=== PATIENT | male | born 1945 | race Caucasian/White ===

== ENCOUNTER 2019-07-29 17:39 | Inpatient (IN) | payer MEDICARE ==
[~2019-07-29] VITALS: Ht 175.3 cm; Wt 83.2 kg
[~2019-07-29 17:39] MED LIST: APIX5TAB PO; ATOR20TA PO; CHOL2000 PO; CLOP75TA52 PO; DILT60CA PO; FERR-46 PO; FURO-93 PO; FURO40TA6 PO; GABA100C PO; INSU100I13 SQ-INSULIN; INSU100V8 SQ; INSU200I SQ; LEVO25TA4 PO; METO50TA82 PO; OMEP-110 PO; POTA20TA6 PO; SERT50TA28 PO; SPIR25TA PO; SULF-169 PO
--- NOTE | 2019-07-29 17:39 | NUR ---
TATIANA FROM [place] C/O INCR CONFUSION, ORIENTED TO SELF ONLY/ABLE TO FOLLOW COMMANDS (BASELINE AOX3), INCR LETHARGY & INCONT B/B SINCE RECENT DC FROM [facility] (ADMIT FOR SEPSIS/UTI), SYMPTOMS WORSENING YESTERDAY; HX A-FIB/ELIQUIS, DM2, CHF; PIV, BG 398, NO OTHER INTERVENTIONS [employer] PER EMS; PT CHANGED INTO GOWN, EKG DONE; CARDIAC, NIBP & SPO2 MONITORS IN PLACE, DAUGHTER AT . Addendum: 07/29/19 at 1904 by KAMILA BLD CX BAND ON PT'S WRIST
[2019-07-29] MEDS ORDERED: POTA20TA89 PO (18:14)
[2019-07-29] MEDS ORDERED: INSU100V8 SQ (18:14)
--- NOTE | 2019-07-29 18:16 | NUR ---
BREAK RN: ERP AT BS
[2019-07-29] MEDS ORDERED: SODIUM CHLORIDE 0.9% 1,000ML IVBOLUS ONE ×2 (18:30→19:30)
[2019-07-29] MEDS ORDERED: SODIUM CHLORIDE FLUSH 10ML SYR IVF ONE (18:30)
[2019-07-29 18:42] LABS: MEAN CORPUSCULAR HEMOGLOBIN 28.4 pg (27.5-34.5); MEAN CORPUSCULAR HGB CONC 32.9 g/dL (33.2-36.2); MEAN CORPUSCULAR VOLUME 86.3 fL (81-97); MEAN PLATELET VOLUME 10.9 fL (7.4-10.4); PLATELET COUNT 111 x10^3/uL (130-400); RED BLOOD COUNT 6.86 x10^6/uL (4.38-5.82); RED CELL DISTRIBUTION WIDTH 16.2 % (9.4-14.8)
--- NOTE | 2019-07-29 18:47 | NUR ---
PT REPORT FROM CASSIE ARTEAGA. PT CARE TO BE ASSUMED. DR BOSE BS FOR FLU SWAB SPECIMEN.
[2019-07-29 18:56] LABS: ALANINE AMINOTRANSFERASE 63 U/L (12-78); ALBUMIN 3.5 g/dL (3.4-5.0); ANION GAP 11 mmol/L (5-15); CALCIUM 9.6 mg/dL (8.5-10.1); CHLORIDE 96 mmol/L (98-107); CREATININE 2.06 mg/dL (0.7-1.3)
[2019-07-29 18:58] LABS: ALKALINE PHOSPHATASE 157 U/L (45-117); BILIRUBIN,TOTAL 1.2 mg/dL (0.2-1.0); TOTAL PROTEIN 7.6 g/dL (6.4-8.2)
--- NOTE | 2019-07-29 19:00 | NUR ---
PT RESTING QUIETLY ON GURNEY, IV INFUSING, 24G RAC - SITE PATENT, CARDIAC & VS MONITORING CONTINUING (TACHY 136), DAUGHTER IN ROOM, SIDE RAILS UP X2, CALL LIGHT W/IN REACH.
--- NOTE | 2019-07-29 19:05 | NUR ---
GIANLUCA LYNN - DAUGHTER ( 05/20/1971) CELL [phone]
[2019-07-29 19:08] LABS: CULTURE INDICATED? YES; MICROSCOPIC INDICATED
--- NOTE | 2019-07-29 19:09 | NUR ---
SIGNED DNR/POLST FORM IN ROOM: DNR. COPY MADE FOR CHART.
[2019-07-29 19:10] LABS: MD YES
[2019-07-29 19:14] LABS: BANDS%(MANUAL) 5 % (0-7); LYMPHS% (MANUAL) 4 % (22-44); MONOS#(MANUAL) 1.39 x10^3/uL (0.3-2.7); MONOS% (MANUAL) 7 % (2-9); SEG#(MANUAL) 16.72 x10^3/uL (1.8-6.8); SEGS% (MANUAL) 84 % (42-75)
[2019-07-29 19:15] LABS: <PLATELET ESTIMATE> DECREASED; <RBC MORPHOLOGY> NORMAL; LARGE PLATELETS 1+
[2019-07-29 19:18] LABS: RAPID INFLUENZA A Negative (Negative); RAPID INFLUENZA B Negative (Negative)
[2019-07-29] MEDS ORDERED: CEFTRIAXONE PMX 1GM/50ML 50 ML ONE ×2 (19:24→19:39)
[2019-07-29] MEDS ORDERED: CEFTRIAXONE PMX 1GM/50ML 50 ML IV ONE (19:30)
--- NOTE | 2019-07-29 20:11 | NUR ---
ALVAREZ IZQUIERDO, INFUSING AT 100ML/HR VIA PUMP. NS INFUSING. IV SITE PATENT. SIDE RAILS UP X2, CALL LIGHT W/IN REACH. PT'S DAUGHTER WENT HOME, TOOK PT'S GLASSES & DNR/POLST FORM WITH HER; LEFT PT'S DENTURES IN DENTURE CUP W/ PT LABEL.
--- NOTE | 2019-07-29 20:36 | NUR ---
EKG BS. ROCEPHIN INFUSED.
[2019-07-29] MEDS ORDERED: METOPROLOL 1 MG/ML, 5ML ONE (20:43)
[2019-07-29] MEDS ORDERED: CIPROFLOXACIN/PMX 400MG/200ML 200 ML IV SCH (21:00)
[2019-07-29] MEDS ORDERED: APIXABAN 2.5 MG TABLET PO SCH (21:00)
[2019-07-29] MEDS ORDERED: METOPROLOL 1 MG/ML, 5ML IVPush ONE (21:00)
[2019-07-29] MEDS ORDERED: SODIUM CHLORIDE 0.9% 1,000 ML IV ONE (21:00)
[2019-07-29] MEDS ORDERED: BISACODYL 10 MG SUPP PR PRN (21:30)
[2019-07-29] MEDS ORDERED: ONDANSETRON ODT 4 MG PO PRN (21:30)
[2019-07-29] MEDS ORDERED: ACETAMINOPHEN 325 MG TABLET PO PRN (21:30)
[2019-07-29] MEDS ORDERED: POLYETHYLENE GLYCOL 17 GM PACKET PO PRN (21:30)
[2019-07-29] MEDS ORDERED: DILTIAZEM 60 MG TABLET ONE (21:48)
[2019-07-29] MEDS ORDERED: APIXABAN 2.5 MG TABLET ONE (21:48)
[2019-07-29] MEDS ORDERED: ATORVASTATIN 20 MG TABLET ONE (21:49)
[2019-07-29] MEDS: DILTIAZEM 60 MG CAP.ER.12H PO SCH (21:58)
[2019-07-29] MEDS: ATORVASTATIN 20 MG TABLET PO SCH (21:59)
[2019-07-29 22:08] VITALS: BP 107/71
[2019-07-29] MEDS: INSULIN LISPRO 100 UNITS/ML, PEN SQ-INSULIN SCH (22:35)
[2019-07-29] MEDS: INSULIN GLARGINE 100 UNITS/ML, PEN SQ-INSULIN SCH (22:44)
[2019-07-29] MEDS: SODIUM CHLORIDE 0.9% 1,000 ML IV SCH (22:44)
[2019-07-29 23:27] VITALS: BP 95/64
[2019-07-30] MEDS ORDERED: DILTIAZEM 5 MG/ML, 5ML IVPush ONE
[2019-07-30 00:32] LABS: CREATININE,URINE RANDOM 66.3 mg/dL
[2019-07-30 01:34] VITALS: BP 100/63
[2019-07-30] MEDS ORDERED: INSULIN LISPRO 100 UNIT/ML, 3ML VIAL SQ-INSULIN ONE (02:00)
[2019-07-30] MEDS: DILTIAZEM 125 MG in SODIUM CHLORIDE 0.9% 100 ML IV SCH ×2 (02:10→15:58)
[2019-07-30 05:15] LABS: MEAN CORPUSCULAR HEMOGLOBIN 28.1 pg (27.5-34.5); MEAN CORPUSCULAR VOLUME 84.9 fL (81-97); MEAN PLATELET VOLUME 11.5 fL (7.4-10.4); PLATELET COUNT 115 x10^3/uL (130-400); RED BLOOD COUNT 6.11 x10^6/uL (4.38-5.82); RED CELL DISTRIBUTION WIDTH 16.4 % (9.4-14.8)
[2019-07-30 05:39] VITALS: BP 85/55
[2019-07-30] MEDS: METOPROLOL TARTRATE 50 MG TABLET PO SCH ×2 (05:49→17:59)
[2019-07-30] MEDS ORDERED: SODIUM CHLORIDE 0.9% 1,000ML IVBOLUS ONE (06:00)
[2019-07-30 06:14] LABS: ALANINE AMINOTRANSFERASE 41 U/L (12-78); ALBUMIN 2.4 g/dL (3.4-5.0); ANION GAP 11 mmol/L (5-15); CALCIUM 8.7 mg/dL (8.5-10.1); CHLORIDE 105 mmol/L (98-107); CREATININE 1.76 mg/dL (0.7-1.3)
[2019-07-30 06:25] LABS: ALKALINE PHOSPHATASE 120 U/L (45-117); BILIRUBIN,TOTAL 0.7 mg/dL (0.2-1.0); TOTAL PROTEIN 5.9 g/dL (6.4-8.2)
[2019-07-30 06:28] LABS: MD YES
[2019-07-30 06:29] LABS: BAND#(MANUAL) 1.72 x10^3/uL; BANDS%(MANUAL) 9 % (0-7); LYMPH#(MANUAL) 1.15 x10^3/uL (1-3.4); LYMPHS% (MANUAL) 6 % (22-44); MONOS#(MANUAL) 1.15 x10^3/uL (0.3-2.7); MONOS% (MANUAL) 6 % (2-9); SEG#(MANUAL) 15.09 x10^3/uL (1.8-6.8); SEGS% (MANUAL) 79 % (42-75)
[2019-07-30 06:30] LABS: <PLATELET ESTIMATE> DECREASED; <RBC MORPHOLOGY> NORMAL; LARGE PLATELETS 2+
[2019-07-30 07:31] VITALS: BP 104/62
[2019-07-30 08:29] VITALS: BP 93/57
[2019-07-30] MEDS: INSULIN GLARGINE 100 UNITS/ML, PEN SQ-INSULIN SCH ×2 (08:31→21:45)
[2019-07-30] MEDS: INSULIN LISPRO 100 UNITS/ML, PEN SQ-INSULIN SCH ×4 (08:31→21:45)
[2019-07-30] MEDS: CHOLECALCIFEROL 1,000 UNIT TABLET PO SCH (08:32)
[2019-07-30] MEDS: DILTIAZEM 60 MG CAP.ER.12H PO SCH ×2 (08:33→17:48)
[2019-07-30] MEDS: LEVOTHYROXINE 25 MCG TABLET PO SCH (08:34)
[2019-07-30] MEDS: GABAPENTIN 100 MG CAPSULE PO SCH (08:34)
[2019-07-30] MEDS: OMEPRAZOLE 20 MG CAPSULE.DR PO SCH (08:34)
[2019-07-30] MEDS: FERROUS SULFATE 325 MG TABLET PO SCH (08:34)
[2019-07-30] MEDS: SERTRALINE 50MG TABLET PO SCH (08:34)
[2019-07-30] MEDS: APIXABAN 5 MG TABLET PO SCH ×2 (08:34→21:10)
[2019-07-30] MEDS: CLOPIDOGREL 75 MG TABLET PO SCH (08:34)
[2019-07-30] MEDS: SENNA/DOCUSATE TABLET PO SCH (08:35)
[2019-07-30] MEDS: SODIUM CHLORIDE 0.9% 1,000 ML IV SCH ×2 (10:00→21:10)
[2019-07-30] MEDS ORDERED: SODIUM CHLORIDE 0.9%, 500ML IVBOLUS ONE (11:00)
[2019-07-30] MEDS: CEFTRIAXONE PMX 2GM/50ML 50 ML IV SCH (12:30)
[2019-07-30 13:03] VITALS: BP 94/60
[2019-07-30 19:57] VITALS: BP 110/59
[2019-07-30] MEDS: ATORVASTATIN 20 MG TABLET PO SCH (21:10)
[2019-07-31 00:25] VITALS: BP 93/58
[2019-07-31 05:39] VITALS: BP 103/63
[2019-07-31] MEDS: METOPROLOL TARTRATE 50 MG TABLET PO SCH ×2 (05:39→17:26)
[2019-07-31] MEDS: SODIUM CHLORIDE 0.9% 1,000 ML IV SCH (05:40)
[2019-07-31 07:16] VITALS: BP 103/72
[2019-07-31] MEDS: INSULIN LISPRO 100 UNITS/ML, PEN SQ-INSULIN SCH ×4 (09:42→21:22)
[2019-07-31] MEDS: INSULIN GLARGINE 100 UNITS/ML, PEN SQ-INSULIN SCH ×2 (09:42→21:22)
[2019-07-31] MEDS: DILTIAZEM 60 MG CAP.ER.12H PO SCH ×2 (09:43→21:23)
[2019-07-31] MEDS: CLOPIDOGREL 75 MG TABLET PO SCH (09:43)
[2019-07-31] MEDS: CHOLECALCIFEROL 1,000 UNIT TABLET PO SCH (09:43)
[2019-07-31] MEDS: LEVOTHYROXINE 25 MCG TABLET PO SCH (09:44)
[2019-07-31] MEDS: OMEPRAZOLE 20 MG CAPSULE.DR PO SCH (09:44)
[2019-07-31] MEDS: APIXABAN 5 MG TABLET PO SCH ×2 (09:44→21:23)
[2019-07-31] MEDS: GABAPENTIN 100 MG CAPSULE PO SCH (09:44)
[2019-07-31] MEDS: SENNA/DOCUSATE TABLET PO SCH (09:45)
[2019-07-31] MEDS: FERROUS SULFATE 325 MG TABLET PO SCH (09:45)
[2019-07-31] MEDS: SERTRALINE 50MG TABLET PO SCH (09:46)
[2019-07-31] MEDS: CEFTRIAXONE PMX 2GM/50ML 50 ML IV SCH (11:52)
[2019-07-31 13:51] VITALS: BP 102/67
[2019-07-31 19:47] VITALS: BP 109/74
[2019-07-31] MEDS: ATORVASTATIN 20 MG TABLET PO SCH (21:23)
[2019-07-31] MEDS ORDERED: MELATONIN 3 MG TABLET PO ONE (23:00)
[2019-08-01 01:30] VITALS: BP 107/67
[2019-08-01 04:49] LABS: BASOPHILS # (AUTO) 0.03 x10^3/uL (0-0.1); BASOPHILS % (AUTO) 0 % (0-1); EOSINOPHILS % (AUTO) 0 % (1-7); LYMPHOCYTES # (AUTO) 0.97 x10^3/uL (1-3.4); LYMPHOCYTES % (AUTO) 10 % (22-44); MD NO; MEAN CORPUSCULAR HEMOGLOBIN 28.6 pg (27.5-34.5); MEAN CORPUSCULAR HGB CONC 32.9 g/dL (33.2-36.2); MEAN CORPUSCULAR VOLUME 86.9 fL (81-97); MEAN PLATELET VOLUME 11.5 fL (7.4-10.4); MONOCYTES # (AUTO) 1.02 x10^3/uL (0.2-0.8); MONOCYTES % (AUTO) 10 % (2-9); NEUTROPHILS # (AUTO) 8.19 x10^3/uL (1.8-6.8); NEUTROPHILS % (AUTO) 80 % (42-75); PLATELET COUNT 101 x10^3/uL (130-400); RED BLOOD COUNT 5.71 x10^6/uL (4.38-5.82); RED CELL DISTRIBUTION WIDTH 16.8 % (9.4-14.8)
[2019-08-01 04:53] LABS: ANION GAP 7 mmol/L (5-15); CALCIUM 8.3 mg/dL (8.5-10.1); CHLORIDE 107 mmol/L (98-107)
[2019-08-01 04:55] LABS: CREATININE 0.93 mg/dL (0.7-1.3)
[2019-08-01 05:00] VITALS: BP 110/71
[2019-08-01] MEDS: METOPROLOL TARTRATE 50 MG TABLET PO SCH ×2 (05:02→18:26)
[2019-08-01 09:45] VITALS: BP 109/75
[2019-08-01] MEDS: SERTRALINE 50MG TABLET PO SCH (09:52)
[2019-08-01] MEDS: LEVOTHYROXINE 25 MCG TABLET PO SCH (09:52)
[2019-08-01] MEDS: GABAPENTIN 100 MG CAPSULE PO SCH (09:52)
[2019-08-01] MEDS: CLOPIDOGREL 75 MG TABLET PO SCH (09:52)
[2019-08-01] MEDS: SENNA/DOCUSATE TABLET PO SCH (09:52)
[2019-08-01] MEDS: FERROUS SULFATE 325 MG TABLET PO SCH (09:52)
[2019-08-01] MEDS: DILTIAZEM 60 MG CAP.ER.12H PO SCH ×2 (09:52→20:15)
[2019-08-01] MEDS: OMEPRAZOLE 20 MG CAPSULE.DR PO SCH (09:52)
[2019-08-01] MEDS: APIXABAN 5 MG TABLET PO SCH ×2 (09:52→20:15)
[2019-08-01] MEDS: CHOLECALCIFEROL 1,000 UNIT TABLET PO SCH (09:52)
[2019-08-01] MEDS: INSULIN GLARGINE 100 UNITS/ML, PEN SQ-INSULIN SCH ×2 (09:53→20:16)
[2019-08-01] MEDS: INSULIN LISPRO 100 UNITS/ML, PEN SQ-INSULIN SCH ×4 (09:53→20:16)
[2019-08-01 11:06] VITALS: BP 107/66
[2019-08-01] MEDS: CEFTRIAXONE PMX 2GM/50ML 50 ML IV SCH (12:07)
[2019-08-01] MEDS ORDERED: OMNIPAQUE 350 MG/ML, 150 ML BOTTLE ONE (17:53)
[2019-08-01 19:45] VITALS: BP 108/52
[2019-08-01] MEDS: MELATONIN 3 MG TABLET PO SCH (20:15)
[2019-08-01] MEDS: ATORVASTATIN 20 MG TABLET PO SCH (20:15)
[2019-08-02 00:43] VITALS: BP 107/72
[2019-08-02] MEDS: METOPROLOL TARTRATE 50 MG TABLET PO SCH (06:16)
[2019-08-02] MEDS: LEVOTHYROXINE 25 MCG TABLET PO SCH (06:16)
[2019-08-02 06:29] LABS: BASOPHILS % (AUTO) 0 % (0-1); EOSINOPHILS # (AUTO) 0.08 x10^3/uL (0-0.4); EOSINOPHILS % (AUTO) 1 % (1-7); LYMPHOCYTES % (AUTO) 9 % (22-44); MD NO; MEAN CORPUSCULAR HEMOGLOBIN 28.3 pg (27.5-34.5); MEAN CORPUSCULAR HGB CONC 32.8 g/dL (33.2-36.2); MEAN CORPUSCULAR VOLUME 86.3 fL (81-97); MEAN PLATELET VOLUME 11.6 fL (7.4-10.4); MONOCYTES # (AUTO) 1.05 x10^3/uL (0.2-0.8); MONOCYTES % (AUTO) 11 % (2-9); NEUTROPHILS # (AUTO) 7.52 x10^3/uL (1.8-6.8); NEUTROPHILS % (AUTO) 79 % (42-75); PLATELET COUNT 117 x10^3/uL (130-400); RED BLOOD COUNT 5.57 x10^6/uL (4.38-5.82); RED CELL DISTRIBUTION WIDTH 16.7 % (9.4-14.8)
[2019-08-02 06:38] LABS: ANION GAP 8 mmol/L (5-15); CHLORIDE 105 mmol/L (98-107); CREATININE 0.89 mg/dL (0.7-1.3)
[2019-08-02] MEDS: GABAPENTIN 100 MG CAPSULE PO SCH (08:25)
[2019-08-02] MEDS: OMEPRAZOLE 20 MG CAPSULE.DR PO SCH (08:25)
[2019-08-02] MEDS: CLOPIDOGREL 75 MG TABLET PO SCH (08:25)
[2019-08-02] MEDS: CHOLECALCIFEROL 1,000 UNIT TABLET PO SCH (08:25)
[2019-08-02] MEDS: DILTIAZEM 60 MG CAP.ER.12H PO SCH ×2 (08:25→19:52)
[2019-08-02] MEDS: APIXABAN 5 MG TABLET PO SCH ×2 (08:25→19:52)
[2019-08-02] MEDS: POTASSIUM CHLORIDE 20 MEQ TAB.ER.PRT PO SCH ×2 (08:25→17:38)
[2019-08-02] MEDS: SENNA/DOCUSATE TABLET PO SCH (08:25)
[2019-08-02] MEDS: SERTRALINE 50MG TABLET PO SCH (08:25)
[2019-08-02] MEDS: INSULIN LISPRO 100 UNITS/ML, PEN SQ-INSULIN SCH ×4 (08:26→19:54)
[2019-08-02] MEDS: INSULIN GLARGINE 100 UNITS/ML, PEN SQ-INSULIN SCH ×2 (08:26→19:55)
[2019-08-02] MEDS: FERROUS SULFATE 325 MG TABLET PO SCH (08:38)
[2019-08-02 09:59] VITALS: BP 100/65
[2019-08-02] MEDS: CEFTRIAXONE PMX 2GM/50ML 50 ML IV SCH (12:02)
[2019-08-02 15:34] VITALS: BP 106/67
[2019-08-02] MEDS ORDERED: METOPROLOL TARTRATE 50 MG TABLET PO SCH (18:00)
[2019-08-02] MEDS: MELATONIN 3 MG TABLET PO SCH (19:52)
[2019-08-02] MEDS: ATORVASTATIN 20 MG TABLET PO SCH (19:53)
[2019-08-02 21:12] VITALS: BP 113/74
[2019-08-03 00:01] VITALS: BP 118/77
[2019-08-03 05:30] VITALS: BP 113/69
[2019-08-03] MEDS: LEVOTHYROXINE 25 MCG TABLET PO SCH (05:34)
[2019-08-03] MEDS: METOPROLOL SUCCINATE 100 MG TAB.ER.24H PO SCH (05:35)
[2019-08-03 06:11] LABS: ANION GAP 5 mmol/L (5-15); CALCIUM 8.3 mg/dL (8.5-10.1); CHLORIDE 106 mmol/L (98-107)
[2019-08-03] MEDS: INSULIN LISPRO 100 UNITS/ML, PEN SQ-INSULIN SCH ×4 (07:00→19:41)
[2019-08-03 07:33] VITALS: BP 99/62
[2019-08-03] MEDS ORDERED: DEXTROSE 50%, 50ML SYRINGE IVPush PRN (08:00)
[2019-08-03] MEDS ORDERED: DEXTROSE 4 GM TAB.CHEW PO PRN (08:00)
[2019-08-03] MEDS ORDERED: GLUCAGON 1 MG IM PRN (08:00)
[2019-08-03] MEDS: INSULIN GLARGINE 100 UNITS/ML, PEN SQ-INSULIN SCH ×2 (08:13→19:40)
[2019-08-03] MEDS: SENNA/DOCUSATE TABLET PO SCH (08:25)
[2019-08-03] MEDS: POTASSIUM CHLORIDE 20 MEQ TAB.ER.PRT PO SCH ×2 (08:25→17:19)
[2019-08-03] MEDS: CHOLECALCIFEROL 1,000 UNIT TABLET PO SCH (08:25)
[2019-08-03] MEDS: OMEPRAZOLE 20 MG CAPSULE.DR PO SCH (08:25)
[2019-08-03] MEDS: FERROUS SULFATE 325 MG TABLET PO SCH (08:26)
[2019-08-03] MEDS: CLOPIDOGREL 75 MG TABLET PO SCH (08:26)
[2019-08-03] MEDS: APIXABAN 5 MG TABLET PO SCH ×2 (08:26→19:39)
[2019-08-03] MEDS: SERTRALINE 50MG TABLET PO SCH (08:26)
[2019-08-03] MEDS: GABAPENTIN 100 MG CAPSULE PO SCH (08:26)
[2019-08-03] MEDS: DILTIAZEM 60 MG CAP.ER.12H PO SCH ×2 (08:26→19:39)
[2019-08-03] MEDS ORDERED: INSULIN GLARGINE 100 UNITS/ML, PEN SQ-INSULIN ONE (08:30)
[2019-08-03] MEDS: SODIUM CHLORIDE FLUSH 10ML SYR IVF SCH ×2 (09:00→19:41)
[2019-08-03 10:38] VITALS: BP 116/80
[2019-08-03] MEDS: CEFTRIAXONE PMX 2GM/50ML 50 ML IV SCH (11:54)
[2019-08-03 13:39] VITALS: BP 107/68
[2019-08-03] MEDS: MELATONIN 3 MG TABLET PO SCH (19:39)
[2019-08-03] MEDS: ATORVASTATIN 20 MG TABLET PO SCH (19:39)
[2019-08-03 20:14] VITALS: BP 131/82
[2019-08-04 01:23] VITALS: BP 109/79
[2019-08-04 05:30] LABS: MEAN CORPUSCULAR HEMOGLOBIN 28.3 pg (27.5-34.5); MEAN CORPUSCULAR HGB CONC 32.6 g/dL (33.2-36.2); MEAN CORPUSCULAR VOLUME 86.6 fL (81-97); MEAN PLATELET VOLUME 10.3 fL (7.4-10.4); PLATELET COUNT 162 x10^3/uL (130-400); RED BLOOD COUNT 5.54 x10^6/uL (4.38-5.82); RED CELL DISTRIBUTION WIDTH 16.6 % (9.4-14.8)
[2019-08-04 05:38] LABS: CHLORIDE 105 mmol/L (98-107)
[2019-08-04 06:04] LABS: ANION GAP 8 mmol/L (5-15); CALCIUM 8.3 mg/dL (8.5-10.1)
[2019-08-04 06:15] LABS: MD YES
[2019-08-04 06:18] VITALS: BP 107/69
[2019-08-04] MEDS: METOPROLOL SUCCINATE 100 MG TAB.ER.24H PO SCH (06:19)
[2019-08-04] MEDS: LEVOTHYROXINE 25 MCG TABLET PO SCH (06:19)
[2019-08-04 06:25] LABS: BAND#(MANUAL) 0.09 x10^3/uL; BANDS%(MANUAL) 1 % (0-7); LYMPH#(MANUAL) 1.56 x10^3/uL (1-3.4); LYMPHS% (MANUAL) 17 % (22-44); MONOS#(MANUAL) 0.18 x10^3/uL (0.3-2.7); MONOS% (MANUAL) 2 % (2-9); SEG#(MANUAL) 7.36 x10^3/uL (1.8-6.8); SEGS% (MANUAL) 80 % (42-75)
[2019-08-04 06:26] LABS: <PLATELET ESTIMATE> ADEQUATE; <PLT MORPHOLOGY> NORMAL PLT MORPH; <RBC MORPHOLOGY> NORMAL
[2019-08-04] MEDS: INSULIN LISPRO 100 UNITS/ML, PEN SQ-INSULIN SCH ×3 (07:42→16:00)
[2019-08-04 07:51] VITALS: BP 111/71
[2019-08-04] MEDS: SODIUM CHLORIDE FLUSH 10ML SYR IVF SCH (09:00)
[2019-08-04] MEDS ORDERED: CEFT2VIA53 IV (11:44)
[2019-08-04] MEDS ORDERED: METO-95 PO (11:44)
[2019-08-04] MEDS: INSULIN GLARGINE 100 UNITS/ML, PEN SQ-INSULIN SCH (11:56)
[2019-08-04] MEDS: DILTIAZEM 60 MG CAP.ER.12H PO SCH (11:57)
[2019-08-04] MEDS: OMEPRAZOLE 20 MG CAPSULE.DR PO SCH (11:57)
[2019-08-04] MEDS: SERTRALINE 50MG TABLET PO SCH (11:58)
[2019-08-04] MEDS: CHOLECALCIFEROL 1,000 UNIT TABLET PO SCH (11:58)
[2019-08-04] MEDS: GABAPENTIN 100 MG CAPSULE PO SCH (11:58)
[2019-08-04] MEDS: FERROUS SULFATE 325 MG TABLET PO SCH (11:58)
[2019-08-04] MEDS: SENNA/DOCUSATE TABLET PO SCH (11:58)
[2019-08-04] MEDS: CLOPIDOGREL 75 MG TABLET PO SCH (11:58)
[2019-08-04] MEDS: POTASSIUM CHLORIDE 20 MEQ TAB.ER.PRT PO SCH (11:59)
[2019-08-04] MEDS: APIXABAN 5 MG TABLET PO SCH (11:59)
[2019-08-04] MEDS: CEFTRIAXONE PMX 2GM/50ML 50 ML IV SCH (13:47)
[2019-08-04 14:57] VITALS: BP 103/67
== END 2019-08-04 17:46 | DRG 871 ==
LOC: ED 18:33 → EDIP 21:32 → 4WST 21:35 → 4EST 08-04 10:03
PROVIDERS: ADMIT Internal Medicine; ATTEND Family Medicine
PROC: 0T9B70Z Drainage of Bladder with Drainage Device, Via Natural or Artificial Opening (ICD-10-PCS; principal; 2019-07-29)
PROC: 02HV33Z Insertion of Infusion Device into Superior Vena Cava, Percutaneous Approach (ICD-10-PCS; 2019-08-04)
PROC: B5181ZA Fluoroscopy of Superior Vena Cava using Low Osmolar Contrast, Guidance (ICD-10-PCS; 2019-08-04)
PROC: B548ZZA Ultrasonography of Superior Vena Cava, Guidance (ICD-10-PCS; 2019-08-04)
DX: A41.89 Other specified sepsis (principal); N17.0 Acute kidney failure with tubular necrosis; G93.41 Metabolic encephalopathy; N15.1 Renal and perinephric abscess; E87.2 Acidosis; E87.1 Hypo-osmolality and hyponatremia; D68.69 Other thrombophilia; I13.0 Hypertensive heart and chronic kidney disease with heart failure and stage 1 through stage 4 chronic kidney disease, or unspecified chronic kidney disease; I48.20 Chronic atrial fibrillation, unspecified; I50.22 Chronic systolic (congestive) heart failure; N10 Acute pyelonephritis; R65.20 Severe sepsis without septic shock; B96.89 Other specified bacterial agents as the cause of diseases classified elsewhere; D69.6 Thrombocytopenia, unspecified; D75.1 Secondary polycythemia; E03.9 Hypothyroidism, unspecified; E11.22 Type 2 diabetes mellitus with diabetic chronic kidney disease; E11.649 Type 2 diabetes mellitus with hypoglycemia without coma; E11.65 Type 2 diabetes mellitus with hyperglycemia; E78.5 Hyperlipidemia, unspecified; E87.6 Hypokalemia; F03.90 Unspecified dementia, unspecified severity, without behavioral disturbance, psychotic disturbance, mood disturbance, and anxiety; F17.210 Nicotine dependence, cigarettes, uncomplicated; I25.10 Atherosclerotic heart disease of native coronary artery without angina pectoris; N18.9 Chronic kidney disease, unspecified; Z66 Do not resuscitate; Z79.01 Long term (current) use of anticoagulants; Z79.4 Long term (current) use of insulin; Z95.0 Presence of cardiac pacemaker; Z95.5 Presence of coronary angioplasty implant and graft; Z90.49 Acquired absence of other specified parts of digestive tract; Z88.0 Allergy status to penicillin; Z88.1 Allergy status to other antibiotic agents
CPT/HCPCS: 36415; 36573; 70450; 71045; 74178; 80048; 80053; 81001; 82436; 82570; 82947; 82962; 83036; 83605; 83735; 84100; 84133; 84145; 84300; 84439; 84443; 85025; 85651; 86140; 87040; 87077; 87086; 87186; 87400; 93005; 96361; 96365; 99291; G0378; J0696; J0744; Q9967; C1751; J1815; J7030; J7040

== ENCOUNTER → 2019-08-18 | Outpatient (CLI) | payer MEDICARE ==
[~2019-08-18] MED LIST changes: +CEFT2VIA53 IV; +METO-95 PO; +OMNIPAQUE 350 MG/ML, 100ML BOTTLE ONE; +POTA20TA89 PO
== END | disposition home or self-care (01) ==
LOC: CFH 13:10
PROVIDERS: ATTEND Internal Medicine
DX: N28.1 Cyst of kidney, acquired (principal); K44.9 Diaphragmatic hernia without obstruction or gangrene; K40.90 Unilateral inguinal hernia, without obstruction or gangrene, not specified as recurrent; G93.41 Metabolic encephalopathy
CPT/HCPCS: 74177; Q9967